=== PATIENT | male | born 1950 | race Caucasian/White ===

== ENCOUNTER 2019-02-16 12:33 | Day surgery (SDC) | payer MEDICARE, OTHER ==
[2019-02-16] MEDS ORDERED: LIDOCAINE 4% SOLUTION 50 ML BTL (15:03)
[2019-02-16] MEDS ORDERED: MIDAZOLAM 1 MG/ML 2 ML INJ (15:43)
[2019-02-16] MEDS ORDERED: FENTAnyl 50 MCG/ML VIAL (15:43)
== END 2019-02-16 16:48 | disposition home or self-care (01) ==
LOC: GIL 12:33
DX: K29.50 Unspecified chronic gastritis without bleeding (principal); E11.9 Type 2 diabetes mellitus without complications
CPT/HCPCS: 43239; 82962; 88305; 88312